=== PATIENT | female | born 1945 | race Caucasian/White ===

== ENCOUNTER → 2018-12-20 | Outpatient (CLI) | payer MEDICARE, OTHER ==
[~2018-12-20] MED LIST: ACET-76 PO; ASPI-496 PO; CALC60CR2 TD; CLON0.5T11 PO; FURO20TA3 PO; HYDR-3237 PO; META800T PO; MORP-52 PO; NIAC500T85 PO; OMEP20TA62 PO; POTA99TA3 PO; QUIN324C3 OP; SENN-177 PO; TRAM50TA2 PO; UMEC1DIS INH; VIT1TABL34 PO; vitamin d PO
[2018-12-20 14:49] LABS: BASOPHILS # (AUTO) 0.03 x10^3/uL (0-0.1); BASOPHILS % (AUTO) 0 % (0-1); EOSINOPHILS # (AUTO) 0.19 x10^3/uL (0-0.4); EOSINOPHILS % (AUTO) 3 % (1-7); LYMPHOCYTES # (AUTO) 1.47 x10^3/uL (1-3.4); LYMPHOCYTES % (AUTO) 22 % (22-44); MD NO; MEAN CORPUSCULAR HEMOGLOBIN 31.4 pg (27.0-34.8); MEAN CORPUSCULAR HGB CONC 33.3 g/dL (32.4-35.8); MEAN CORPUSCULAR VOLUME 94.6 fL (80-100); MONOCYTES % (AUTO) 9 % (2-9); NEUTROPHILS # (AUTO) 4.43 x10^3/uL (1.8-6.8); NEUTROPHILS % (AUTO) 66 % (42-75); PLATELET COUNT 181 x10^3/uL (130-400); RED BLOOD COUNT 5.26 x10^6/uL (3.82-5.3); RED CELL DISTRIBUTION WIDTH 16.4 % (9.6-15.2)
[2018-12-20 14:57] LABS: ANION GAP 5 mmol/L (5-15); CALCIUM 9.1 mg/dL (8.5-10.1); CHLORIDE 107 mmol/L (98-107)
[2018-12-20 15:00] LABS: CREATININE 0.72 mg/dL (0.55-1.02)
[2018-12-20 15:22] LABS: MICROSCOPIC INDICATED
== END | disposition home or self-care (01) ==
LOC: STAR 13:22
PROVIDERS: ATTEND Urology
DX: Z01.818 Encounter for other preprocedural examination (principal); N20.0 Calculus of kidney; I44.4 Left anterior fascicular block
CPT/HCPCS: 36415; 80048; 81001; 85025; 87086; 93005

== ENCOUNTER 2018-12-27 09:21 | Day surgery (SDC) | payer MEDICARE, OTHER ==
[2018-12-20 13:59] VITALS: BP 152/82
[~2018-12-27] VITALS: Ht 167.6 cm; Wt 105.0 kg
[2018-12-27] MEDS ORDERED: LACTATED RINGERS 1,000 ML IV SCH (09:52)
[2018-12-27] MEDS ORDERED: ALBUTEROL/IPRATROPIUM 2.5MG/0.5MG, 3 ML ONE (11:11)
[2018-12-27] MEDS ORDERED: ALBUTEROL/IPRATROPIUM 2.5MG/0.5MG, 3 ML NEB ONE (11:30)
[2018-12-27] MEDS ORDERED: PROPOFOL 10 MG/ML, 20ML ONE (11:31)
[2018-12-27] MEDS ORDERED: ROCURONIUM 10 MG/ML,10ML ONE (11:31)
[2018-12-27] MEDS ORDERED: CEFTRIAXONE 1,000 MG ONE (11:58)
[2018-12-27] MEDS ORDERED: SUGAMMADEX 200 MG/2 ML IVPush ONE (12:48)
[2018-12-27] MEDS ORDERED: ACETAMINOPHEN 325 MG TABLET PO PRN (13:00)
[2018-12-27] MEDS ORDERED: KETOROLAC 30 MG/1 ML IM PRN ×2 (13:00)
[2018-12-27] MEDS ORDERED: OXYcodone 5 MG/5 ML ORAL.SOL UDC PO PRN (13:00)
[2018-12-27] MEDS ORDERED: MEPERIDINE/PF 25MG/0.5ML IVPush PRN (13:00)
[2018-12-27] MEDS ORDERED: MORPHINE SULFATE 4 MG/ML, 1ML IVPush PRN (13:00)
[2018-12-27] MEDS ORDERED: FENTANYL PF 100 MCG/2ML IV PRN (13:00)
[2018-12-27] MEDS ORDERED: HYDROmorphone 2 MG/ML, 1ML IVPush PRN (13:00)
[2018-12-27] MEDS ORDERED: HYDROcodone/APAP 7.5-325MG/15ML UDC PO PRN (13:00)
[2018-12-27] MEDS ORDERED: KETOROLAC 30 MG/1 ML IV PRN ×2 (13:00)
[2018-12-27] MEDS ORDERED: OMNIPAQUE 350 MG/ML, 50 ML BOTTLE ONE (13:06)
[2018-12-27] MEDS ORDERED: ACETAMINOPHEN 500 MG TABLET PO PRN (13:30)
[2018-12-27] MEDS ORDERED: ACETAMINOPHEN 650 MG/20.3 ML UDC ONE (13:34)
[2018-12-27] MEDS ORDERED: NIACIN 500 MG TABLET.ER PO SCH (21:00)
[2018-12-28] MEDS ORDERED: OMEPRAZOLE 20 MG CAPSULE.DR PO SCH (06:00)
[2018-12-28] MEDS ORDERED: VIT A HOMEMEDPO SCH (09:00)
[2018-12-28] MEDS ORDERED: VIT C HOMEMEDPO SCH (09:00)
[2018-12-28] MEDS ORDERED: VIT E HOMEMEDPO SCH (09:00)
[2018-12-28] MEDS ORDERED: COPPER HOMEMEDPO SCH (09:00)
[2018-12-28] MEDS ORDERED: ZINC HOMEMEDPO SCH (09:00)
== END 2018-12-27 17:35 | disposition home or self-care (01) ==
LOC: OUT 09:21
PROVIDERS: ATTEND Urology
DX: N20.0 Calculus of kidney (principal); F17.210 Nicotine dependence, cigarettes, uncomplicated; Z88.8 Allergy status to other drugs, medicaments and biological substances
CPT/HCPCS: 52356; 74420; 82360; 88300; 94640; C1758; C1769; C2617; J0696; J2704; J7120; Q9967